=== PATIENT | male | born 1985 | race Two or more races ===

== ENCOUNTER 2021-04-12 06:40 | Emergency (ER) | payer OTHER ==
[~2021-04-12] VITALS: Ht 165.1 cm; Wt 59.0 kg
[2021-04-12 09:10] VITALS: BP 130/94
== END 2021-04-12 09:18 | disposition home or self-care (01) ==
LOC: ER 06:40
DX: S39.012A Strain of muscle, fascia and tendon of lower back, initial encounter (principal); F17.200 Nicotine dependence, unspecified, uncomplicated; Z88.0 Allergy status to penicillin; X58.XXXA Exposure to other specified factors, initial encounter; Y93.89 Activity, other specified; Y92.89 Other specified places as the place of occurrence of the external cause; Y99.8 Other external cause status
CPT/HCPCS: 72100

== ENCOUNTER 2022-06-27 06:55 | Emergency (ER) | payer OTHER ==
[~2022-06-27] VITALS: Ht 162.6 cm; Wt 60.0 kg
[2022-06-27] MEDS ORDERED: ONDANSETRON ODT 4 MG TAB PO ONE (07:30)
[2022-06-27] MEDS ORDERED: LIDOCAINE VISCOUS 2% 15ML UD PO ONE (07:30)
[2022-06-27] MEDS ORDERED: MAALOX PLUS or MAALOX 30 ML PO ONE (07:30)
[2022-06-27] MEDS ORDERED: FAMOTIDINE 20 MG TAB PO ONE (07:30)
[2022-06-27 07:53] LABS: Basophils # (auto) 0 10 ^3/uL (0-0.2); Basophils % (auto) 0.6 % (0.0-2.0); Eosinophils # (auto) 0.2 10 ^3/uL (0-0.8); Eosinophils % (auto) 3.3 % (0.0-7.0); Hematocrit 46.2 % (41.0-53.0); Lymphocytes # (auto) 1.6 10 ^3/uL (0.4-5.4); Lymphocytes % (auto) 24.8 % (10.0-50.0); Mean Corpuscular Hemoglobin 31.8 pg (28.0-32.0); Mean Corpuscular Hgb Conc. 34.6 g/dL (32.0-36.0); Mean Corpuscular Volume 91.9 fL (80.0-100.0); Monocytes # (auto) 0.6 10 ^3/uL (0-1.3); Monocytes % (auto) 8.7 % (0.0-12.0); Neutrophils % (auto) 62.6 % (37.0-80.0); Nucleated Red Blood Cells % 0.2 %; Red Blood Cells 5.03 10^6/uL (4.5-5.90); Red Cell Distribution Width 12.6 % (11.8-14.3); White Blood Cell 6.4 10^3/uL (4.4-10.8)
[2022-06-27 07:59] LABS: Urine Bacteria NONE SEEN /hpf (None Seen); Urine Blood Negative /uL (Negative); Urine Mucus FEW (None Seen); Urine Specific Gravity 1.027 (1.001-1.035); Urine WBC 1 /hpf (0 - 3)
[2022-06-27 08:01] LABS: Calcium 8.6 mg/dL (8.5-10.1); Potassium 4.2 mmol/L (3.5-5.1)
[2022-06-27 08:06] LABS: BUN/Creatinine Ratio 16.8; Bilirubin, Total 0.6 mg/dL (0.2-1.0); Total Protein 7.2 g/dL (6.4-8.2)
[2022-06-27] MEDS ORDERED: ONDA-144 PO (08:43)
[2022-06-27 08:56] VITALS: BP 127/76
== END 2022-06-27 09:00 | disposition home or self-care (01) ==
LOC: ER 06:55
DX: R11.2 Nausea with vomiting, unspecified (principal); Z88.0 Allergy status to penicillin; Z98.890 Other specified postprocedural states
CPT/HCPCS: 36415; 80053; 81001; 85025; 99284; Q0162

== ENCOUNTER 2022-09-18 21:41 | Emergency (ER) | payer OTHER ==
[~2022-09-18] VITALS: Ht 165.1 cm; Wt 59.0 kg
[~2022-09-18 21:41] MED LIST: ONDA-144 PO
[2022-09-19] MEDS ORDERED: IBUP-1456 PO (02:24)
[2022-09-19] MEDS ORDERED: KETOROLAC TROMETH 60MG/2ML VIAL IM ONE (02:30)
[2022-09-19 03:04] VITALS: BP 126/82
== END 2022-09-19 03:29 | disposition home or self-care (01) ==
LOC: ER 21:41
DX: S93.602A Unspecified sprain of left foot, initial encounter (principal); Z88.0 Allergy status to penicillin; Z98.890 Other specified postprocedural states; X58.XXXA Exposure to other specified factors, initial encounter; Y93.89 Activity, other specified; Y92.89 Other specified places as the place of occurrence of the external cause; Y99.8 Other external cause status
CPT/HCPCS: 73630; 96372; 99283; J1885

== ENCOUNTER 2023-11-20 06:09 | Emergency (ER) | payer OTHER ==
[~2023-11-20] VITALS: Ht 165.1 cm; Wt 63.6 kg
[~2023-11-20 06:09] MED LIST changes: +CEPH250C PO; +CLIN1CAP70 PO; +IBU600T PO; +IBUP-1456 PO
[2023-11-20 07:04] VITALS: BP 119/88; PULSE 72; RESP 18; TEMP 98.2; O2SAT 97
[2023-11-20] MEDS: KETOROLAC TROMETH 30 MG/ML 1ML VIAL IM ONE (07:36)
[2023-11-20] MEDS: methylPREDNISolone SOD SUCC 125 MG/2 ML VL IM ONE (07:36)
[2023-11-20] MEDS ORDERED: PRED20TA2 PO (07:45)
[2023-11-20] MEDS ORDERED: IBUP1TAB5 PO (07:45)
== END 2023-11-20 08:01 | disposition home or self-care (01) ==
LOC: ER 06:09
DX: G89.29 Other chronic pain (principal); M54.59 Other low back pain; F17.210 Nicotine dependence, cigarettes, uncomplicated; Z88.0 Allergy status to penicillin; Z79.1 Long term (current) use of non-steroidal anti-inflammatories (NSAID); Z79.899 Other long term (current) drug therapy; Z98.890 Other specified postprocedural states
CPT/HCPCS: 96372; 99284; J1885; J2919